=== PATIENT | female | born 1955 | race Caucasian/White ===

== ENCOUNTER → 2017-03-07 | Outpatient (CLI) | payer OTHER ==
[2017-03-07 08:01] LABS: MEAN CORPUSCULAR HEMOGLOBIN 30.9 pg (28.0-34.0); MEAN CORPUSCULAR VOLUME 93.9 fl (80.0-100.0)
[2017-03-07 08:36] LABS: eGFR (African) > 60; eGFR (Non-African) > 60
== END ==
LOC: LAB 07:45
PROVIDERS: ATTEND Family Medicine
DX: E03.9 Hypothyroidism, unspecified (principal); Z00.00 Encounter for general adult medical examination without abnormal findings
CPT/HCPCS: 36415; 80053; 80061; 84443; 85027

== ENCOUNTER 2017-07-23 09:10 | Outpatient (CLI) | payer OTHER ==
--- NOTE | 2017-07-23 17:42 | Diagnostic Imaging Report ---
LUCÍA GALLEGOS [facility] [address] [facility] [address] [address] Report Submission Date: Jul 23, 2017 10:00:29 AM CDT Patient Study Name: CORTEZ GIPSON Date: Jul 23, 2017 9:16:31 AM CDT Modality Type: DX Gender: F Description: SHOULDER : 53 Institution: [facility] Physician: LUCÍA GALLEGOS Examination: Plain film right clavicle. History: RT CLAVICLE, PROMINENET RT CLAVICULAR HEAD, MEDIAL ASPECT, PT STATES SHE NOTICED IT ABOUT 5-6 WEEKS AGO (Hx) Comparison exams: None available. Findings: 2 views of the right clavicle demonstrates normal cortical margins. Mild degenerative changes involving the acromioclavicular joint. No evidence for fracture. No acromioclavicular joint space widening. Impression: Mild degenerative changes. No evidence for fracture. Electronically signed on Jul 23, 2017 10:00:29 AM CDT by: Low MALAGON
== END 2017-07-23 09:11 ==
LOC: RAD 09:10
PROVIDERS: ATTEND Family Medicine
DX: M89.8X1 Other specified disorders of bone, shoulder (principal)
CPT/HCPCS: 73000

== ENCOUNTER 2018-09-15 16:44 | Outpatient (CLI) | payer OTHER | END 2018-09-15 16:46 | LOC: LAB 16:44 | PROVIDERS: ATTEND Family Medicine | DX: E03.9 Hypothyroidism, unspecified (principal) | CPT/HCPCS: 36415; 84443 ==